=== PATIENT | male | born 1935 | race Caucasian/White ===

== ENCOUNTER 2024-04-28 17:26 | Inpatient (IN) | payer BC ==
[~2024-04-28] VITALS: Ht 180.3 cm; Wt 75.7 kg
[2024-04-28] MEDS ORDERED: AMLODIPINE (18:05)
[2024-04-28] MEDS ORDERED: ABIRATERONE (18:05)
[2024-04-28] MEDS ORDERED: PREDNISONE (18:05)
[2024-04-28] MEDS: IV NORMAL SALINE 500 ML BAG IV ONE (18:57)
[2024-04-28 19:25] LABS: BASOPHILS # (AUTO) 0.1 K/UL (0.0-0.2); BASOPHILS % (AUTO) 1.1 % (0.0-2.0); EOSINOPHILS % (AUTO) 0.6 % (0.0-7.0); LYMPHOCYTES # (AUTO) 0.9 K/uL (0.8-4.8); LYMPHOCYTES % (AUTO) 18.9 % (20.5-51.5); MEAN CORPUSCULAR HEMOGLOBIN 31.3 uug (23.8-33.4); MEAN CORPUSCULAR HGB CONC 33 g/dL (32.5-36.3); MEAN CORPUSCULAR VOLUME 95.3 fL (73.0-96.2); MONOCYTES # (AUTO) 0.6 K/uL (0.1-1.30); MONOCYTES % (AUTO) 13.3 % (0.0-11.0); NEUTROPHILS # (AUTO) 3.2 K/uL (1.8-8.9); NEUTROPHILS % (AUTO) 66.1 % (38.5-71.5); PLATELET COUNT (AUTO) 146 K/uL (152-348); RED CELL DISTRIBUTION WIDTH 15.2 % (12.1-16.2); WHITE BLOOD COUNT (AUTO) 4.8 K/uL (3.6-10.2)
[2024-04-28 19:30] LABS: RED BLOOD CELL COUNT(AUTO) 1.59 MIL/uL (4.06-5.63)
[2024-04-28 19:32] LABS: DIFFERENTIAL COMMENT 1; HEMATOCRIT 15.1 % (36.7-47.1)
[2024-04-28] MEDS ORDERED: CEFTRIAXONE 1 G VIAL ONE (19:39)
[2024-04-28] MEDS ORDERED: DEXAMETHASONE SOD PHOSPHATE 10 MG INJ ONE (19:39)
[2024-04-28 19:50] LABS: CALCIUM 8.6 mg/dL (8.5-10.1); CARBON DIOXIDE 16 mmol/L (21-32); CHLORIDE 106 mmol/L (98-107); CREATININE 3.9 mg/dL (0.6-1.3); GLUCOSE 147 mg/dL (74-106); POTASSIUM 4.1 mmol/L (3.5-5.1); SODIUM SERUM 139 mmol/L (136-145)
[2024-04-28 19:56] LABS: UREA NITROGEN, BLOOD 154 mg/dL (7-18)
[2024-04-28 19:58] LABS: ALANINE AMINOTRANSFERASE 15 U/L (16-63); ALBUMIN 2.7 g/dL (3.4-5.0); ALKALINE PHOSPHATASE 56 U/L (50-136); ASPARTATE AMINOTRANSFERASE 11 U/L (15-37); BILIRUBIN,DIRECT 0.1 mg/dL (0.0-0.2); BILIRUBIN,TOTAL 0.2 mg/dL (0.2-1.0); TOTAL PROTEIN, SERUM 6.3 g/dL (6.4-8.2)
[2024-04-28] MEDS: DEXAMETHASONE SOD PHOSPHATE 4 MG INJ IV ONE (20:07)
[2024-04-28] MEDS: IV NORMAL SALINE 1000 ML BAG IV ONE (20:07)
[2024-04-28] MEDS: CEFTRIAXONE 2 G in IV DEXTROSE 5% 100 ML IV ONE (20:07)
[2024-04-28] MEDS ORDERED: LORAZEPAM 2 MG/1 ML VIAL ONE (20:14)
[2024-04-28] MEDS: LORAZEPAM 2 MG/1 ML VIAL IV ONE (20:18)
[2024-04-28 21:05] LABS: *BILIRUBIN,URIN NEGATIVE (NEGATIVE); *BLOOD, URINE NEGATIVE (NEGATIVE); *CLARITY,URINE CLEAR (CLEAR); *COLOR,URINE YELLOW (YELLOW); *KETONES,URINE NEGATIVE (NEGATIVE); *PROTEIN,URINE TRACE (NEGATIVE); *UROBILINOGEN,URINE 0.2 E.U./dl (NORMAL); NITRITE, URINE NEGATIVE (NEGATIVE); PH,URINE 5.5 (5.0-8.0); UGLUCOSE NEGATIVE (NEGATIVE)
[2024-04-28 21:24] LABS: LEUKOCYTE ESTERASE ,URINE NEGATIVE (NEGATIVE)
[2024-04-28 21:30] LABS: RBC,URINE 0-3 /HPF (0-3); WBC,URINE 0-3 /HPF (0-3)
[2024-04-28] MEDS ORDERED: ONDANSETRON 4 MG/2 ML VIAL IV PRN (23:30)
[2024-04-28] MEDS ORDERED: hydrALAZINE HCL 25 MG TABLET PO PRN (23:30)
[2024-04-28] MEDS ORDERED: ACETAMINOPHEN 325 MG TABLET PO PRN (23:30)
[2024-04-29] VITALS (23 sets, daily range): BP systolic 117–176; BP diastolic 55–115; TEMP 97.6–98.7; O2SAT 96–100
[2024-04-29] MEDS: IV 1/2NS 1000 ML 1,000 ML IV PRN (04:08)
[2024-04-29] MEDS: PANTOPRAZOLE SODIUM 40 MG TABLET.DR PO SCH (09:12)
[2024-04-29 09:38] LABS: BASOPHILS % (AUTO) 0.3 % (0.0-2.0); LYMPHOCYTES # (AUTO) 0.4 K/uL (0.8-4.8); LYMPHOCYTES % (AUTO) 7.5 % (20.5-51.5); MEAN CORPUSCULAR HEMOGLOBIN 31.2 uug (23.8-33.4); MEAN CORPUSCULAR HGB CONC 33 g/dL (32.5-36.3); MONOCYTES # (AUTO) 0.3 K/uL (0.1-1.30); MONOCYTES % (AUTO) 5.8 % (0.0-11.0); NEUTROPHILS # (AUTO) 4.9 K/uL (1.8-8.9); NEUTROPHILS % (AUTO) 86.4 % (38.5-71.5); PLATELET COUNT (AUTO) 104 K/uL (152-348); WHITE BLOOD COUNT (AUTO) 5.6 K/uL (3.6-10.2)
[2024-04-29 09:56] LABS: *BILIRUBIN,URIN NEGATIVE (NEGATIVE); *CLARITY,URINE CLEAR (CLEAR); *COLOR,URINE YELLOW (YELLOW); *KETONES,URINE NEGATIVE (NEGATIVE); *PROTEIN,URINE NEGATIVE (NEGATIVE); *UROBILINOGEN,URINE 0.2 E.U./dl (NORMAL); LEUKOCYTE ESTERASE ,URINE NEGATIVE (NEGATIVE); NITRITE, URINE NEGATIVE (NEGATIVE); PH,URINE 5.5 (5.0-8.0); UGLUCOSE NEGATIVE (NEGATIVE)
[2024-04-29 09:59] LABS: DIFFERENTIAL COMMENT 1; RED BLOOD CELL COUNT(AUTO) 2.06 MIL/uL (4.06-5.63)
[2024-04-29 10:03] LABS: HEMATOCRIT 19.7 % (36.7-47.1); HEMOGLOBIN 6.4 g/dL (12.5-16.3)
[2024-04-29 10:07] LABS: ALANINE AMINOTRANSFERASE 14 U/L (16-63); ALBUMIN 2.4 g/dL (3.4-5.0); ALKALINE PHOSPHATASE 48 U/L (50-136); ASPARTATE AMINOTRANSFERASE 12 U/L (15-37); BILIRUBIN,TOTAL 0.3 mg/dL (0.2-1.0); CALCIUM 7.7 mg/dL (8.5-10.1); CARBON DIOXIDE 12 mmol/L (21-32); CHLORIDE 113 mmol/L (98-107); CREATININE 3.1 mg/dL (0.6-1.3); GLUCOSE 139 mg/dL (74-106); MAGNESIUM 2.2 mg/dL (1.8-2.4); PHOSPHOROUS 3.7 mg/dL (2.5-4.9); POTASSIUM 4.1 mmol/L (3.5-5.1); SODIUM SERUM 141 mmol/L (136-145); TOTAL PROTEIN, SERUM 5.9 g/dL (6.4-8.2)
[2024-04-29 10:09] LABS: UREA NITROGEN, BLOOD 145 mg/dL (7-18)
[2024-04-29 10:10] LABS: *BLOOD, URINE TRACE (NEGATIVE)
[2024-04-29 10:29] LABS: CHOLESTEROL 92 mg/dL (<200); HDL CHOLESTEROL 26 mg/dL (40-60); TRIGLYCERIDES 184 MG/DL (30-150)
[2024-04-29 10:40] LABS: IRON, SERUM 179 ug/dL (50-175)
[2024-04-29 11:02] LABS: THYROID STIMULATING HORMONE 1.158 mIU/mL (0.358-3.740)
[2024-04-29 11:56] LABS: BACTERIA,URINE NONE SEEN /HPF (NONE SEEN); RBC,URINE 0-3 /HPF (0-3); SQUAMOUS EPITHELIAL CELL,UR FEW /HPF (NONE SEEN); WBC,URINE 0-3 /HPF (0-3)
[2024-04-29] MEDS: HYDROCORTISONE 2.5 % RECTAL CREAM 28.35 GM TUBE RC SCH (12:09)
[2024-04-29] MEDS: MORPHINE SULFATE 2 MG/1 ML DISP.SYRIN IV PRN (13:35)
[2024-04-29 15:52] LABS: PROSTATE SPECIFIC ANTIGEN 2.29 ng/mL (0.00-4.00)
[2024-04-29] MEDS ORDERED: PRED-170 PO (16:53)
[2024-04-29] MEDS ORDERED: AMLO-212 PO (16:53)
[2024-04-29] MEDS ORDERED: ABIR500T PO (16:53)
[2024-04-29 17:17] LABS: BASOPHILS % (MANUAL) 0 % (0-2); EOSINOPHILS % (MANUAL) 0 % (0-8); LYMPHOCYTES % (MANUAL) 10 % (20-40); MONOCYTES % (MANUAL) 5 % (2-10); NEUTROPHILS % (MANUAL) 85 % (42-75)
[2024-04-29] MEDS: IV NS 1000 ML 1,000 ML IV PRN (20:36)
[2024-04-29] MEDS: PANTOPRAZOLE SODIUM 40 MG VIAL IV SCH (20:36)
[2024-04-30] VITALS (14 sets, daily range): BP systolic 98–171; BP diastolic 54–88; TEMP 98.3–98.8; O2SAT 97–100
[2024-04-30 05:07] LABS: LYMPHOCYTES # (AUTO) 0.5 K/uL (0.8-4.8); MONOCYTES # (AUTO) 0.4 K/uL (0.1-1.30); PLATELET COUNT (AUTO) 86 K/uL (152-348); RED CELL DISTRIBUTION WIDTH 16.4 % (12.1-16.2)
[2024-04-30 05:09] LABS: BASOPHILS % (AUTO) 0.2 % (0.0-2.0); EOSINOPHILS % (AUTO) 0.7 % (0.0-7.0); MEAN CORPUSCULAR HEMOGLOBIN 31.4 uug (23.8-33.4); MEAN CORPUSCULAR HGB CONC 35 g/dL (32.5-36.3); MONOCYTES % (AUTO) 8.3 % (0.0-11.0); NEUTROPHILS # (AUTO) 3.3 K/uL (1.8-8.9); NEUTROPHILS % (AUTO) 77.8 % (38.5-71.5); WHITE BLOOD COUNT (AUTO) 4.2 K/uL (3.6-10.2)
[2024-04-30 05:52] LABS: ALANINE AMINOTRANSFERASE 17 U/L (16-63); ALBUMIN 2.5 g/dL (3.4-5.0); ALKALINE PHOSPHATASE 44 U/L (50-136); ASPARTATE AMINOTRANSFERASE 12 U/L (15-37); BILIRUBIN,TOTAL 0.3 mg/dL (0.2-1.0); CALCIUM 7.8 mg/dL (8.5-10.1); CARBON DIOXIDE 15 mmol/L (21-32); CHLORIDE 115 mmol/L (98-107); CREATINE KINASE, TOTAL 56 U/L (39-308); CREATININE 2.9 mg/dL (0.6-1.3); GLUCOSE 109 mg/dL (74-106); MAGNESIUM 1.9 mg/dL (1.8-2.4); PHOSPHOROUS 4.1 mg/dL (2.5-4.9); POTASSIUM 3.9 mmol/L (3.5-5.1); SODIUM SERUM 143 mmol/L (136-145); TOTAL PROTEIN, SERUM 5.6 g/dL (6.4-8.2)
[2024-04-30 05:54] LABS: UREA NITROGEN, BLOOD 109 mg/dL (7-18)
[2024-04-30 06:02] LABS: RED BLOOD CELL COUNT(AUTO) 2.05 MIL/uL (4.06-5.63)
[2024-04-30 06:03] LABS: DIFFERENTIAL COMMENT 1; HEMATOCRIT 18.6 % (36.7-47.1); HEMOGLOBIN 6.4 g/dL (12.5-16.3)
[2024-04-30 06:31] LABS: LYMPHOCYTES % (MANUAL) 12 % (20-40); MONOCYTES % (MANUAL) 5 % (2-10); NEUTROPHILS % (MANUAL) 83 % (42-75)
[2024-04-30 06:32] LABS: ANISOCYTOSIS 1+; PLATELET ESTIMATE MARKED DECREASED
[2024-04-30] MEDS ORDERED: EPINEPHRINE 1:10,000 1 MG/10 ML DISP.SYRIN ONE (13:11)
[2024-04-30] MEDS: hydrALAZINE HCL 25 MG TABLET PO PRN (17:02)
[2024-04-30] MEDS: hydrALAZINE HCL 20 MG/1 ML VIAL IV PRN (17:06)
[2024-04-30] MEDS ORDERED: PROPOFOL 200 MG/20 ML BOTTLE ONE (18:45)
[2024-04-30 20:43] LABS: HEMATOCRIT 26.9 % (36.7-47.1); HEMOGLOBIN 8.9 g/dL (12.5-16.3)
[2024-05-01 04:32] VITALS: BP 132/72; TEMP 98.2; O2SAT 96
[2024-05-01 05:09] LABS: BASOPHILS % (AUTO) 0.6 % (0.0-2.0); EOSINOPHILS # (AUTO) 0.1 K/uL (0.0-0.7); EOSINOPHILS % (AUTO) 1.7 % (0.0-7.0); HEMATOCRIT 24.1 % (36.7-47.1); HEMOGLOBIN 8.3 g/dL (12.5-16.3); LYMPHOCYTES # (AUTO) 0.5 K/uL (0.8-4.8); LYMPHOCYTES % (AUTO) 12.1 % (20.5-51.5); MEAN CORPUSCULAR HEMOGLOBIN 30.6 uug (23.8-33.4); MEAN CORPUSCULAR HGB CONC 34 g/dL (32.5-36.3); MEAN CORPUSCULAR VOLUME 88.9 fL (73.0-96.2); MONOCYTES # (AUTO) 0.5 K/uL (0.1-1.30); MONOCYTES % (AUTO) 10.6 % (0.0-11.0); NEUTROPHILS # (AUTO) 3.2 K/uL (1.8-8.9); PLATELET COUNT (AUTO) 95 K/uL (152-348); RED BLOOD CELL COUNT(AUTO) 2.72 MIL/uL (4.06-5.63); RED CELL DISTRIBUTION WIDTH 16.5 % (12.1-16.2); WHITE BLOOD COUNT (AUTO) 4.3 K/uL (3.6-10.2)
[2024-05-01 05:40] LABS: CALCIUM 8.1 mg/dL (8.5-10.1); CARBON DIOXIDE 16 mmol/L (21-32); CHLORIDE 113 mmol/L (98-107); CREATININE 2.1 mg/dL (0.6-1.3); GLUCOSE 99 mg/dL (74-106); POTASSIUM 3.2 mmol/L (3.5-5.1); SODIUM SERUM 141 mmol/L (136-145); UREA NITROGEN, BLOOD 66 mg/dL (7-18)
[2024-05-01 05:42] LABS: DIFFERENTIAL COMMENT N
[2024-05-01 05:51] LABS: BAND % (MANUAL) 2 % (0-10); LYMPHOCYTES % (MANUAL) 14 % (20-40); MONOCYTES % (MANUAL) 8 % (2-10)
[2024-05-01 05:52] LABS: EOSINOPHILS % (MANUAL) 1 % (0-8); NEUTROPHILS % (MANUAL) 75 % (42-75); PLATELET ESTIMATE DECREASED
[2024-05-01] MEDS ORDERED: POTASSIUM CHLORIDE 20 MEQ POWDER PACKET GT ONE (07:15)
[2024-05-01 08:00] VITALS: BP 156/79; TEMP 98.7; O2SAT 97
[2024-05-01] MEDS: AMLODIPINE 5 MG TABLET PO SCH (08:47)
[2024-05-01] MEDS: POTASSIUM CHLORIDE 20 MEQ TAB.PRT.SR PO ONE (08:47)
[2024-05-01 12:00] VITALS: BP 145/76; TEMP 98.4; O2SAT 97
[2024-05-01 15:09] LABS: ALBUMIN 2.6 g/dL (2.9-4.4); ALPHA-1-GLOBULIN 0.2 g/dL (0.0-0.4); ALPHA-2-GLOBULIN 0.6 g/dL (0.4-1.0); BETA GLOBULIN 0.6 g/dL (0.7-1.3); GAMMA GLOBULIN 1.2 g/dL (0.4-1.8); GLOBULIN, TOTAL 2.6 g/dL (2.2-3.9)
[2024-05-01 16:00] VITALS: BP 136/79; TEMP 98.2; O2SAT 97
[2024-05-01 20:12] VITALS: BP 126/69; TEMP 98.5; O2SAT 97
[2024-05-02 04:10] VITALS: BP 160/82; TEMP 98.7; O2SAT 98
[2024-05-02 05:06] LABS: BASOPHILS % (AUTO) 0.6 % (0.0-2.0); EOSINOPHILS # (AUTO) 0.1 K/uL (0.0-0.7); EOSINOPHILS % (AUTO) 1.7 % (0.0-7.0); HEMOGLOBIN 8.6 g/dL (12.5-16.3); LYMPHOCYTES # (AUTO) 0.6 K/uL (0.8-4.8); MEAN CORPUSCULAR HEMOGLOBIN 30.9 uug (23.8-33.4); MEAN CORPUSCULAR HGB CONC 34 g/dL (32.5-36.3); MEAN CORPUSCULAR VOLUME 89.9 fL (73.0-96.2); MONOCYTES # (AUTO) 0.5 K/uL (0.1-1.30); NEUTROPHILS # (AUTO) 2.4 K/uL (1.8-8.9); NEUTROPHILS % (AUTO) 66.7 % (38.5-71.5); PLATELET COUNT (AUTO) 106 K/uL (152-348); RED BLOOD CELL COUNT(AUTO) 2.78 MIL/uL (4.06-5.63); RED CELL DISTRIBUTION WIDTH 16.5 % (12.1-16.2); WHITE BLOOD COUNT (AUTO) 3.6 K/uL (3.6-10.2)
[2024-05-02 05:18] LABS: CALCIUM 8.3 mg/dL (8.5-10.1); CARBON DIOXIDE 18 mmol/L (21-32); CHLORIDE 112 mmol/L (98-107); CREATININE 2.2 mg/dL (0.6-1.3); GLUCOSE 101 mg/dL (74-106); POTASSIUM 3.7 mmol/L (3.5-5.1); SODIUM SERUM 139 mmol/L (136-145); UREA NITROGEN, BLOOD 52 mg/dL (7-18)
[2024-05-02 05:29] LABS: DIFFERENTIAL COMMENT 1
[2024-05-02 05:30] LABS: LYMPHOCYTES % (AUTO) 18.9 % (20.5-51.5); MONOCYTES % (AUTO) 12.1 % (0.0-11.0)
[2024-05-02 06:20] VITALS: BP 179/80; TEMP 98; O2SAT 100
[2024-05-02] MEDS ORDERED: PANT40TA2 PO (11:33)
[2024-05-02] MEDS ORDERED: AMLO-212 PO (11:33)
[2024-05-02 12:00] VITALS: BP 141/71; TEMP 98; O2SAT 97
[2024-05-02] MEDS: MIRALAX 17 GM POWD.PACK PO ONE (12:43)
[2024-05-03] MEDS ORDERED: PANTOPRAZOLE SODIUM 40 MG TABLET.DR PO SCH (07:00)
== END 2024-05-02 17:15 | disposition home health service (06) | DRG 377 ==
LOC: ER 17:28 → CCU 04-29 01:52 → MEDSURG3 05-02 06:15
PROVIDERS: ADMIT Internal Medicine; ATTEND Internal Medicine
PROC: 30233N1 Transfusion of Nonautologous Red Blood Cells into Peripheral Vein, Percutaneous Approach (ICD-10-PCS; principal; 2024-04-29)
PROC: 05HC33Z Insertion of Infusion Device into Left Basilic Vein, Percutaneous Approach (ICD-10-PCS; 2024-04-29)
PROC: 0DB68ZX Excision of Stomach, Via Natural or Artificial Opening Endoscopic, Diagnostic (ICD-10-PCS; 2024-04-30)
DX: K25.4 Chronic or unspecified gastric ulcer with hemorrhage (principal); E43 Unspecified severe protein-calorie malnutrition; G92.8 Other toxic encephalopathy; N17.0 Acute kidney failure with tubular necrosis; D62 Acute posthemorrhagic anemia; C61 Malignant neoplasm of prostate; E88.09 Other disorders of plasma-protein metabolism, not elsewhere classified; I12.9 Hypertensive chronic kidney disease with stage 1 through stage 4 chronic kidney disease, or unspecified chronic kidney disease; N18.9 Chronic kidney disease, unspecified; E86.0 Dehydration; I25.10 Atherosclerotic heart disease of native coronary artery without angina pectoris
CPT/HCPCS: 36415; 70030-TC; 70450; 71045; 76770; 83550; 83605; 83735; 83970; 84100; 84153; 84155; 84165; 84300; 84443; 84484; 85018; 85025; 85730; 86850; 86900; 86901; 86920; 87040; 93005; 93307; A4606; A4663; C9113; G0378; J0171; J0360; J0696; J1100; J2060; J2270; J3490; J7040; P9016